=== PATIENT | female | born 1965 | race Caucasian/White ===

== ENCOUNTER 2021-06-21 15:49 | Emergency (ER) | payer MEDICAID ==
[~2021-06-21] VITALS: Ht 154.9 cm; Wt 84.0 kg
--- NOTE | 2021-06-21 16:31 | RAD ---
XR FOOT_LEFT 3 VIEWS DATE: 06/21/2021 4:18 PM INDICATION: LEFT DORSAL FOOT PAIN COMPARISON: None. FINDINGS: Bones: There is no evidence of acute fracture or dislocation. Joints: The joint spaces are normal. Lisfranc's joint is congruent. Miscellaneous: None. IMPRESSION: No acute osseous abnormality. Electronically signed by: Gatson Rehman MD (06/21/2021 4:29 PM) [facility]
--- NOTE | 2021-06-21 16:39 | PHYS DOC ---
Past History Past Surgical History: Hysterectomy, Other Additional Past Surgical Histo: back surgeries x4 (DESTINEY DELGADILLO APRN) Alcohol Use: None (DESTINEY DELGADILLO APRN) General Adult EDM: Chief Complaint: FOOT INJURY PAIN HPI: HPI: Patient is a 56-year-old female who presents with right foot swelling. Patient states that swelling has been there for about 3 weeks. Patient denies injury. All the swelling is localized to the top of her foot. Patient's been taking aspirin for pain. Denies denies anything making pain better or worse. Denies fever or recent illness. (DESTINEY DELGADILLO APRN) Review of Systems: Review of Systems: ROS At least 10 ROS systems have been reviewed and are negative except as documented in the HPI. General: Negative except as outlined in HPI above. Skin: Negative except as outlined in HPI above. HEENT: Negative except as outlined in HPI above. Neck: Negative except as outlined in HPI above. Respiratory: Negative except as outlined in HPI above.. Cardiovascular: Negative except as outlined in HPI above. Abdomen: Negative except as outlined in HPI above. : Negative except as outlined in HPI above. Back/MSK: Negative except as outlined in HPI above. Neuro: Negative except as outlined in HPI above. Psych: Negative except as outlined in HPI above. (DESTINEY DELGADILLO APRN) Allergies: Allergies: Allergies Coded Allergies Type Severity Reaction Last Updated Verified No Known Allergies Allergy Unknown 06/21/21 Yes (DESTINEY DELGADILLO APRN) Physical Exam: PE: Constitutional: Well developed, well nourished, no acute distress, non-toxic appearance. [] HENT: Normocephalic, atraumatic, bilateral external ears normal, oropharynx moist, no oral exudates, nose normal. [] Eyes: PERRLA, EOMI, conjunctiva normal, no discharge. [] Neck: Normal range of motion, no tenderness, supple, no stridor. [] Cardiovascular:Heart rate regular rhythm, no murmur [] Lungs & Thorax: Bilateral breath sounds clear to auscultation [] Abdomen: Bowel sounds normal, soft, no tenderness, no masses, no pulsatile masses. [] Skin: Swelling, dorsal side of left foot. Back: No tenderness, no CVA tenderness. [] Extremities: no cyanosis, no clubbing, ROM intact, left footswelling to dorsal side, pedal pulses intact, tender to the touch Neurologic: Alert and oriented X 3, normal motor function, normal sensory function, no focal deficits noted. [] Psychologic: Affect normal, judgement normal, mood normal. [] (DESTINEY DELGADILLO APRN) EKG: EKG: [] (DESTINEY DELGADILLO APRN) Radiology/Procedures: Radiology/Procedures: []XR FOOT_LEFT 3 VIEWS DATE: 06/21/2021 4:18 PM INDICATION: LEFT DORSAL FOOT PAIN COMPARISON: None. FINDINGS: Bones: There is no evidence of acute fracture or dislocation. Joints: The joint spaces are normal. Lisfranc's joint is congruent. Miscellaneous: None. IMPRESSION: No acute osseous abnormality. Electronically signed by: Gaston Rehman MD (06/21/2021 4:29 PM) SAL (DESTINEY DELGADILLO APRN) Heart Score: C/O Chest Pain: No Risk Factors: Risk Factors: DM, Current or recent (<one month) smoker, HTN, HLP, family history of CAD, obesity. Risk Scores: Score 0 - 3: 2.5% MACE over next 6 weeks - Discharge Home Score 4 - 6: 20.3% MACE over next 6 weeks - Admit for Clinical Observation Score 7 - 10: 72.7% MACE over next 6 weeks - Early Invasive Strategies (DESTINEY DELGADILLO APRN) Course & Med Decision Making: Course & Med Decision Making Pertinent Labs and Imaging studies reviewed. (See chart for details) [] 56-year-old female presents with right foot swelling for 3 weeks. X-ray is unremarkable. Patient's pain treated in the ER. Patient's foot swelling is suspicious for cellulitis. I am sending patient home with a prescription for Keflex and hydrocodone for pain. Advised patient to follow-up with her PCP in the next few days. Patient should try and rest, use ice to the area and elevate. Patient appreciative okay with discharge plan. (DESTINEY DELGADILLO APRN) Course & Med Decision Making I was the Attending physician on the above date of service of this patient. This patient was evaluated, examined, treated, and dispositioned from the emergency department by the mid-level practitioner. Although I was working at the time , no assistance was requested. Electronically signed, Phillip Farr DO (PHILLIP FARR DO) Skyler Disclaimer: Skyler Disclaimer: This electronic medical record was generated, in whole or in part, using a voice recognition dictation system. (DESTINEY DELGADILLO APRN) Departure Departure: Impression: Primary Impression: Swelling of left foot Disposition: HOME / SELF CARE / HOMELESS Condition: STABLE Referrals: DHAVAL CAMPOS MD (PCP) Patient Instructions: Cellulitis, [id number] Additional Instructions: You are seen in the emergency room for left foot pain. X-ray was unremarkable. I am sending you home with some pain medication until you can follow-up with your PCP. You can use ice to the area and elevate to help with swelling and pain. Please return to the emergency room with worsening symptoms or concerns. EMERGENCY DEPARTMENT GENERAL DISCHARGE INSTRUCTIONS Thank you for coming to [facility] (ED) today and trusting us with you care. We trust that you had a positivie experience in our Emergency Department. If you wish to speak to the department management, you may call the director at . YOUR FOLLOW UP INSTRUCTIONS ARE FOLLOWS: 1. Do you have a private Doctor? If you do not have a private doctor, please ask for a resource list of physicians or clinics that may be able to assist you with follow up care. 2. The Emergency Physician has interpreted your x-rays. The X-Ray specialist will also review them. If there is a change in the findings, you will be notified in 48 hours when at all possible. 3. A lab test or culture has been done, your results will be reviewed and you will be notified if you need a change in treatment. ADDITIONAL INSTRUCTIONS AND INFORMATION: 1. Your care today has been supervised by a physician who is specially trained in emergency care. Many problems require more than one evaluation for a complete diagnosis and treatment. We recommend that you schedule your follow up appointment as recommended to ensure complete treatment of you illness or injury. If you are unable to obtain follow up care and continue to have a problem, or if your condition worsens, we recommend that you return to the ED. 2. We are not able to safely determine your condition over the phone nor are we able to give sound medical advice over the phone. For these safety reasons, if you call for medical advice we will ask you to come to the ED for further evaluation. 3. If you have any questions regarding these discharge instructions please call the ED at [phone]. SAFETY INFORMATION: In the interest of safety, wellness, and injury prevention; we encourage you to wear your sealbelt, if you smoke; quite smoking, and we encourage family to use a protective helmet for bicycling and other sporting events that present an increased risk for head injury. IF YOUR SYMPTOMS WORSEN OR NEW SYMPTOMS DEVELOP, OR YOU HAVE CONCERNS ABOUT YOUR CONDITION; OR IF YOUR CONDITION WORSENS WHILE YOU ARE WAITING FOR YOUR FOLLOW UP APPOINTMENT; EITHER CONTACT YOUR PRIMARY CARE DOCTOR, THE PHYSICIAN WHOSE NAME AND NUMBER YOU WERE GIVEN, OR RETURN TO THE ED IMMEDIATELY. Scripts Cephalexin (CEPHALEXIN) 500 Mg Tablet 1 TAB PO BID for swelling for 5 Days, #10 TAB Prov: DESTINEY DELGADILLO APRN 06/21/21 Hydrocodone Bit/Acetaminophen (HYDROCODONE-APAP 5-325 ) 1 Each Tablet 0.5-1 TAB PO PRN Q6HRS PRN for PAIN for 3 Days, #12 TAB 0 Refills Prov: DESTINEY DELGADILLO APRN 06/21/21 DESTINEY DELGADILLO APRN Jun 21, 2021 16:39 PHILLIP FARR DO Jun 24, 2021 00:42
[2021-06-21] MEDS ORDERED: CEPH500T PO (17:15)
[2021-06-21] MEDS ORDERED: HYDR-2155 PO (17:15)
[2021-06-21 17:28] VITALS: BP 148/78
[2021-06-21] MEDS ORDERED: HYDROcodone/APAP 5/325MG 1 TAB TABLET PO ONE (17:30)
== END 2021-06-21 17:35 | disposition home or self-care (01) ==
LOC: ER 15:49
DX: R22.42 Localized swelling, mass and lump, left lower limb (principal)
CPT/HCPCS: 73630; 99283